=== PATIENT | female | born 1955 | race Caucasian/White ===

== ENCOUNTER 2025-04-06 11:39 | Outpatient (CLI) | payer MEDICARE, SELFPAY ==
--- NOTE | ~2025-04-06 | US_ITS ---
EXAMINATION: US venous doppler [facility] DATE: 04/06/2025 12:16 INDICATION: Left lower limb pain and swelling TECHNIQUE: Grayscale ultrasound images without and with compression and Doppler ultrasound images of the left lower extremity veins were obtained. COMPARISON: None. FINDINGS: The visualized portions of left common femoral vein, profunda (deep) femoral vein, femoral vein, popliteal vein, peroneal veins, posterior tibial veins, gastrocnemius vein and greater saphenous vein outflow are patent. IMPRESSION: 1. No deep venous thrombosis in the left lower limb. Reviewed, dictated and finalized at location [facility] [employer]
--- OUTSIDE RECORDS SUMMARY | 2025-04-06 12:42 | XMS_ITS | Encounter Summary ---
Author Organization [facility] Address [address] [address] Care Team Providers Care Remote Sensing Surveyor Name Role Phone Karl Riley MD Primary Care Provider [phone] Encounter Details Date Type Department Care Team (Late st Contact Info) Description 10/22/2019 Lab Requisition [facility] LAB MICROBIOLOGY [address] [place] [address] Hermann Robert MD Cough Social History Tobacco Use Types Packs/Day Years Used Date Smoking Tobacco: Never Assessed Comments Unknown Sex and Gender Information Value Date Recorded Sex Assigned at Not on file Legal Sex Female 9:38 AM DIRECTOR MISSION Gender Identity Not on file Sexual Orientation Not on file documented as of this encounter Plan of Treatment Not on file documented as of this encounter Procedures Procedure Name Priority Date/Time Associated Diagnosis Comments SARS-COV-2 (COVID-19) IN HOUSE Routine 10/22/2019 9:00 AM CDT Cough documented in this encounter Results * SARS-COV-2 (COVID-19) IN HOUSE (10/22/2019 9:00 AM CDT) COVID-19 PCR Not detected Not detected, Invalid 10/23/2019 4:00 PM CDT [facility] MICROBIOLOGY Microbiology SPECIMEN FROM NASOPHARYNGEAL STRUCTURE / Unknown Collection / Unknown 10/22/2019 9:00 AM CDT 10/22/2019 8:30 PM CDT Narrative [facility] MICROBIOLOGY - 10/23/2019 4:00 PM CDT This Real Time RT-PCR assay was developed and its performance characteristics determined by [facility]. This test has been authorized by the Food and Drug administration (FDA)under an Emergency Use Authorization (EUA). This test has been validated in accordance with the FDA's guidance document Policy for Diagnostic Testing in Laboratories Certified to perform High Complexity Testing under CLIA prior to Emergency Use Authorization for Coronavirus Disease-2019 during the Public Health Emergency issued on July 23, 2019. FDA independent review of this validation is pending. This test is only authorized for the duration of time the declaration that circumstances exist justifying the authorization of emergency use of in vitro diagnostic tests for detection of SARS-CoV-2 virus and/or diagnosis of COVID-19 infection under section 564(b)(1) of the Act, 21 U.S.C 360bbb-3 (b)(1), unless the authorization is terminated or revoked sooner. us Hermann Robert MD LAB - MICROBIOLOGY ORDERABL ES Final Result [facility] MICROBIOLOGY [address] [place], [address] [phone] documented in this encounter Visit Diagnoses Diagnosis Cough documented in this encounter Additional Health Concerns Infection Onset Date Last Indicated Resolved Time COVID-19 Under Investigation 10/22/2019 10/22/2019 10/23/2019 4:00 PM CDT documented as of this encounter Care Teams Remote Sensing Surveyor Relationship Specialty Start Date End Date Karl Riley MD [address] [place] [address] PCP - General Family Medicine 02/03/24 documented as of this encounter
--- OUTSIDE RECORDS SUMMARY | 2025-04-06 12:43 | XMS_ITS | Clinical Summary ---
Author Organization [facility] Address [address] [place] [address] Care Team Providers Care Crop Adjuster Name Role Phone Karl Riley MD Primary Care Provider [phone] Allergies Active Allergy Reactions Criticality Noted Date Comments Sulfa (Sulfonamide Antibiotics) Hives,Rash Medium 01/23 Medications amLODIPine (NORVASC) 5 mg tablet Take 5 mg by mouth daily Active rosuvastatin (CRESTOR) 10 mg tablet Take 10 mg by mouth daily Active cholecalciferol (VITAMIN D-3) 15668 unit tablet Take 50,000 Units by mouth once a week Active pantoprazole DR (PROTONIX) 40 mg EC tablet Take 40 mg by mouth daily Active levothyroxine (SYNTHROID) 88 mcg tablet Take 88 mcg by mouth daily 03/02/2022 Active glucosamine/cho ndr jarquin A sod (OSTEO BI-FLEX ORAL) Take by mouth Active multivitamin capsule Take 1 capsule by mouth daily Active psyllium, aspartame, SF (METAMUCIL SF) 3.4 gram packet Take 1 packet by mouth daily Active Lactobac no.41/Bifidobac t no.7 (PROBIOTIC-10 ORAL) Take by mouth Active meloxicam (MOBIC) 15 mg tabletIndicatio ns:Chronic pain of right knee Take 1 tablet (15 mg total) by mouth daily 30 tablet 2 04/30/2022 Active meloxicam (MOBIC) 15 mg tabletIndicatio ns:Chronic pain of right knee Take 1 tablet (15 mg total) by mouth daily 30 tablet 2 04/30/2022 Active Active Problems Problem Noted Date Diagnosed Date Family history of colon cancer in father 021 Overview (04/23/2021): Added automatically from request for surgery [id number] Personal history of colonic polyps 04/23/2021 Overview (04/23/2021): Added automatically from request for surgery [id number] Encounter for screening colonoscopy 04/23/2021 Overview (04/23/2021): Added automatically from request for surgery [id number] Surgical History Surgery Date Site/Laterality Comments COLONOSCOPY 10/25/2019 1 yr Medical History Medical History Date Comments Colon polyp Chronic constipation Hypertension Hyperlipidemia Hypothyroidism Acid reflux Gout Family History Medical History Relation Name Comments Colon cancer Father Colon cancer Sister Relation Name Status Comments Father Sister Social History Tobacco Use Types Packs/Day Years Used Date Smoking Tobacco: Never Tobacco Cessation:Counseling Given: Not Answered Personal Safety Answer Date Recorded Getting School Help Needed Not on file 05/29 Comments Unknown Sex and Gender Information Value Date Recorded Sex Assigned at Not on file Legal Sex Female 10:29 AM TRANSFER STATION ATTENDANT Gender Identity Not on file Sexual Orientation Not on file Last Filed Vital Signs Vital Sign Reading Time Taken Comments Blood Pressure 123/70 07/04/2021 9:02 AM TRANSFER STATION ATTENDANT Pulse 62 07/04/2021 9:02 AM TRANSFER STATION ATTENDANT Temperature 36.5 C (97.7 F) 07/04/2021 9:02 AM TRANSFER STATION ATTENDANT Respiratory Rate 16 07/04/2021 9:02 AM TRANSFER STATION ATTENDANT Oxygen Saturation 99% 07/04/2021 9:02 AM TRANSFER STATION ATTENDANT Inhaled Oxygen Concentration - - Weight 81.6 kg (180 lb) 04/29/2022 10:14 AM TRANSFER STATION ATTENDANT Height 162.6 cm (5' 4) 04/29/2022 10:14 AM TRANSFER STATION ATTENDANT Body Mass Index 30.9 04/29/2022 10:14 AM TRANSFER STATION ATTENDANT Plan of Treatment Health Maintenance Due Date Last Done Comments Depression Screening 1955 Hepatitis C Screening 1955 DTaP/Tdap/Td Vaccine (1 - Tdap) 1965 Hepatitis B Screening 1972 Breast Cancer Screening-Mammogram 04/26/2015 014, 04/20/2013 Well Visit 65+ 2019 Fall Risk Assessment 07/04/2022 07/04/2021 Pneumococcal vaccine 65+ (3 of 3 - PCV20 or PCV21) 03/02/2023 03/02/2018, 08/10/2015 Osteoporosis Screening-Bone Density Scan 08/09/2023 08/08/2021 Covid-19 Vaccine (2024- 6 season) 2025 03/16/2022, 09/22/2021, 03/08/2021, Additional history exists Influenza Vaccine (#1) 2025 , 03/25/2021, 02/16/2020, Additional history exists Colon Cancer Screening-Colonoscopy 07/04/20312021 Zoster Vaccine Completed 04/22/2019, 01/24, 07/25/2016 Procedures Procedure Name Priority Date/Time Associated Diagnosis Comments COLONOSCOPY 07/04/2021 7:20 AM TRANSFER STATION ATTENDANT DIGITAL MAMMOGRAPHY Routine 04/26/2014 1 2:59 PM TRANSFER STATION ATTENDANT from Last 3 Months or Most Recently Relevant to Health Maintenance Results * COLONOSCOPY (07/04/2021 7:20 AM TRANSFER STATION ATTENDANT) Anatomical Region Laterality Modality Other Narrative Procedure Note Eugenio Medina MD - 07/04/2021 7:20 AM CST [facility] Patient Name: Mari Holley Procedure Date: 07/04/2021 7:20 AM Date of : 1955 Admit Type: Outpatient Age: 66 Gender: Female Attending MD: Eugenio Medina M.D. Room: [facility] ENDOSCOPY ROOM 2 Note Status: Finalized Patient Profile: Refer to note in patient chart for documentation of history and physical. Procedure: Colonoscopy Indications: High risk colon cancer surveillance: Personalhistory of colonic polyps, Family history of colon cancerin multiple first-degree relatives, Last colonoscopy 1 year ago Referring MD: Karl Riley M.D. Providers: Eugenio Medina M.D. Impression: - Hemorrhoids found on perianal exam. - Diverticulosis in the sigmoid colon. - The examination was otherwise normal. - No specimens collected. Recommendation: - Discharge patient to home. - Resume previous diet. - Continue present medications. - Repeat colonoscopy in 5 years for surveillance. - Return to primary care physician as previously scheduled. Medicines: Propofol per Anesthesia Complications: No immediate complications. Estimated Blood Loss: Estimated blood loss: none. Procedure: Pre-Anesthesia Assessment: - This assessment was completed [Time ofAssessment] prior to the administration of sedation. The benefits, risks and alternatives of theprocedure and sedation were discussed and informed consentwas obtained. All questions were answered. Please referto the signed informed consent document in the medical record. The bowel preparation used was Miralax via single dose instruction. The bowel preparation used was bisacodyl tablets via single dose instruction.The scope was passed under direct vision. TheColonoscope [id number] was introduced through the anus and advanced to the the cecum, identified by appendiceal orifice and ileocecal valve. The colonoscopy was performed without difficulty. The patient tolerated the procedure well. The qualityof the bowel preparation was excellent. Findings: Hemorrhoids were found on perianal exam. A few small-mouthed diverticula were found in the sigmoid colon. The exam was otherwise without abnormality. Electronically signed by Eugenio Medina M.D. Eugenio Medina M.D. 07/04/2021 8:33:37 AM Number of Addenda: 0 Note Initiated On: 07/04/2021 7:20 AM Procedure Code(s): --- Professional --- G0105, Colorectal cancer screening; colonoscopy on individual at high risk Diagnosis Code(s): --- Professional --- K57.30, Diverticulosis of large intestine without perforation orabscess without bleeding Z80.0, Family history of malignant neoplasm of digestive organs K64.9, Unspecified hemorrhoids Z86.010, Personal history of colonic polyps CPT copyright 2019 [employer]. All rights reserved. The codes documented in this report are preliminary and upon cytogenetics laboratory manager reviewmay be revised to meet current compliance requirements. Recognized by the [employer] for promoting quality in endoscopy us Eugenio Medina MD ENDOSCOPY PROCEDURES Final Re sult * DIGITAL MAMMOGRAPHY (04/26/2014 12:59 PM TRANSFER STATION ATTENDANT) Anatomical Region Laterality Modality Breast Mammography 04/26/2014 12:5 9 PM TRANSFER STATION ATTENDANT Narrative 04/27/2014 9:12 AM TRANSFER STATION ATTENDANT Vm Mammogram Performed by: Screening Mamm Bi Acc#: [id number] DATE OF EXAM: Apr 26 2014 CLINICAL HISTORY: Routine screening, no current complaints. RESULT: Four view screening mammogram is compared to a prior exam dated 04/20/13. There has been no interval change. The breasts are composed of scattered fibroglandular densities. Several small partially obscured nodular densities are scattered throughout both breasts. These are unchanged compared to the prior study. There are no new masses or suspicious microcalcifications. Digital technology was employed plus computer-aided detection software (R2) was utilized in interpretation of these images. This facility utilizes a reminder system to notify patients of yearly mammograms. IMPRESSION: BI RADS CATEGORY 2 BENIGN FINDING. RECOMMEND ROUTINE FOLLOW UP. Interpreting Physician: DR BRENDA NAIR M.D. Read on: Apr 26 2014 12:59P Transcribed by: von On: Apr 26 2014 5:00P Approved Electronically by: JOANIE Jennings, DR GUTIERREZ on: Apr 27 2014 9:12A Ordering DR: DR WATSON GRIFFIN Attending DR: DR WATSON GRIFFIN Procedure Note Provider, Raul, - 09/23/2016 Vm Mammogram Performed by: Screening Mamm Bi Acc#: [id number] DATE OF EXAM: Apr 26 2014 CLINICAL HISTORY: Routine screening, no current complaints. RESULT: Four view screening mammogram is compared to a prior exam dated 04/20/13.There has been no interval change. The breasts are composed of scatteredfibroglandular densities. Several small partially obscured nodulardensities are scattered throughout both breasts. These are unchangedcompared to the prior study. There are no new masses or suspiciousmicrocalcifications. Digital technology was employed plus computer-aideddetection software ([employer]) was utilized in interpretation of these images.This facility utilizes a reminder system to notify patients of yearlymammograms. IMPRESSION: BI RADS CATEGORY 2 BENIGN FINDING. RECOMMEND ROUTINE FOLLOW UP. Interpreting Physician: DR BRENDA NAIR M.D. Read on: Apr 26 201412:59P Transcribed by: von On: Apr 26 2014 5:00P Approved Electronically by: JOANIE Jennings, DR GUTIERREZ on: Apr 27 20149:12A Ordering DR: DR WATSON GRIFFIN Attending DR: DR WATSON GRIFFIN Historical Provider MD NUNEZ MAMMO PROCEDURES Nancy l Result from Last 3 Months or Most Recently Relevant to Health Maintenance Insurance [facility] MEDICARE ADVANTAGE [facility] MEDICARE ADVANTAGE Advance Directives For more information, please contact: [phone] * Full Code (Latest Code Status on File) Date Activated Date Inactivated Comments 07/04/2021 7:40 AM 07/04/2021 1:35 PM * Full Code Date Activated Date Inactivated Comments 07/04/2021 7:40 AM 07/04/2021 7:40 AM Care Teams Crop Adjuster Relationship Specialty Start Date End Date Karl Riley MD [address] [place] [address] PCP - General Family Medicine 04/23/21
--- OUTSIDE RECORDS SUMMARY | 2025-04-06 12:43 | XMS_ITS | Clinical Summary ---
Author Organization [facility] Address [address] [place] [address] Phone Care Team Providers Care Gel Coat Sprayer Name Role Phone Karl Riley Primary Care Provider [phone] Murray Monreal MD Unavailable Allergies Active Allergy Reactions Criticality Noted Date Comments Sulfa Antibiotics Rash 02/04/2016 Medications levothyroxine (SYNTHROID) 50 MCG Tablet Take 50 mcg by mouth every morning. Active amLODIPine (NORVASC) 5 MG Tablet Take 5 mg by mouth every morning. Active ergocalciferol (VITAMIN D) 09387 UNIT Capsule once a week. Thursday nights 0 Active omeprazole (PRILOSEC) 20 MG CAPSULE DELAYED RELEASE nightly. 0 Active rosuvastatin (CRESTOR) 10 MG Tablet every morning. Activ e pantoprazole (PROTONIX) 40 MG Tablet Delayed Response Take 40 mg by mouth daily. Active OXYGEN CONCENTRATOR 5 L by Does not apply route. nightly Active VITAMIN D PO Take by mouth. Ac tive cyanocobalamin (VITAMIN B12) 2500 MCG SL Tablet Take 1 Tablet by mouth daily. Active melatonin 5 MG TABLET DISPERSIBLE Take by mouth. Act ana paula Active Problems Problem Noted Date Diagnosed Date Chronic respiratory failure with hypoxia Personal history of tobacco use 09/03/2020 Personal history of COVID-19 09/03/2020 BIJAL (obstructive sleep apnea) 06/05/2020 Gastroesophageal reflux disease without esophagi tis 06/05/2020 Essential (primary) hypertension 06/05/2020 Encounters Date Type Department Care Team Description 02/06/2025 Telephone [facility] Medical [facility] - Pulmonology & Sleep Medicine [facility] [address] [place] [address] Murray Monreal MD from Last 3 Months Family History Medical History Relation Name Comments Colon Cancer Father Diabetes Father High Cholesterol Father Hypertension Father Diabetes Mother High Cholesterol Mother Hypertension Mother Breast Cancer Other Maternal cousin Breast Cancer Sister Colon Cancer Sister colon Lung Cancer Sister Relation Name Status Comments Father Mother Other Maternal cousin Alive Sister Social History Tobacco Use Types Packs/Day Years Used Date Smoking Tobacco: Former Cigarettes 1 47.7 0 02/03/1969 - 10/24/2016 Smokeless Tobacco: Never Tobacco Cessation:Counseling Given: Not Answered Alcohol Use Standard Drinks/Week Comments No 0 (1 standard drink = 0.6 oz pur e alcohol) Sexually Active Control Partners Comments Not Currently Comments No Sex and Gender Information Value Date Recorded Sex Assigned at Not on file Legal Sex Female 4:44 PM EXTERMINATOR Gender Identity Not on file Sexual Orientation Not on file Last Filed Vital Signs Vital Sign Reading Time Taken Comments Blood Pressure 124/68 01/02/2025 11:25 AM CDT Pulse 60 01/02/2025 11:25 AM CDT Temperature 36.7 C (98 F) 01/02/2025 11:25 AM CDT Respiratory Rate 14 01/02/2025 11:2 5 AM CDT Oxygen Saturation 95% 01/02/2025 11: 25 AM CDT Inhaled Oxygen Concentration - - Weight 82.4 kg (181 lb 11.2 oz) 025 11:25 AM CDT Height 160 cm (5' 3) 01/02/2025 11:25 AM CDT Body Mass Index 32.19 01/02/2025 11:25 AM CDT Plan of Treatment Upcoming Encounters Date Type Department Care Team (Late st Contact Info) Description 01/02/2026 10:00 AM CDT [facility] [address] [facility] [place] [phone] Murray Monreal MD [address] [place] [address] Health Maintenance Due Date Last Done Comments TdaP Immunization 1955 Cologuard 1999 Immunochemical Fecal Occult Blood 1999 Respiratory Syncytial Virus (RSV) Immunization (Adult) (1 - Risk 50-74 years 1-dose series) 2004 Pneumococcal Immunization (50+ years) (2 of 2 - PCV) 03/02/2019 03/02/2018, 08/10/2015 Medicare Initial AWV G0438 05/25/2020 Lung Cancer Screening 07/25/2020 07/26/2019, 020 DEXA Bone Density 08/09/2023 08/08/2021, 12/07/2017 Mammogram 01/06/2025 01/07/2024, 11/22, 10/15/2022, Additional history exists Influenza Immunization (#1) 01/23/202502/23, 03/08/2023, 03/02/2022, Additional history exists SARS-COV-2 Immunization ( season) 2025 04/05/2023, 03/16/2022, 09/22/2021, Additional history exists Colonoscopy 07/04/2031 07/04/2021, 06/06/2019, 10/27/2017, Additional history exists Colorectal Cancer Screening 07/04/2031 Hepatitis C Virus (HCV) Screening Completed 02/24/2017 Pneumococcal Immunization Combined Discontinued 03/02/2018, 08/10/2015 Zoster Immunization Completed 04/22/2019, 02/16/2019, 07/25/2016 Hepatitis B Immunization Aged Out No longer eligible based on patient's age to complete this topic Human Papillomavirus (HPV) Immunization Aged Out No longer eligible based on patient's age to complete this topic Meningococcal Immunization (ACWY) Aged Out No longer eligible based on patient's age to complete this topic Rotavirus Immunization Aged Out No lo nger eligible based on patient's age to complete this topic Procedures Procedure Name Priority Date/Time Associated Diagnosis Comments PULMONARY TEST 01/18/2025 12:00 AM CDT PULSE OXIMETRY, OVERNIGHT Routine 01/18/2025 12:00 AM CDT Chronic respiratory failure with hypoxia (HCC) COLONOSCOPY Routine 10/27/2017 [facility] SCREENING BILATERAL DIGITAL W CAD Routine 04/16/2016 4:14 PM EXTERMINATOR Encounter for screening mammogram for malignant neoplasm of breast from Last 3 Months or Most Recently Relevant to Health Maintenance Results * PULMONARY TEST (01/18/2025 12:00 AM CDT) 01/18/2025 us Provider Scan PFT ORDERABLES Final Result Performing Organization Address City/[facility]/ZIP Co de Phone Number SCAN * PULSE OXIMETRY, OVERNIGHT (01/18/2025 12:00 AM CDT) 01/18/2025 us Murray Monreal MD RESPIRATORY CARE ORDERABLES Nancy l Result Performing Organization Address City/[facility]/ZIP Co de Phone Number SCAN * HM COLONOSCOPY (10/27/2017) us Not On File Provider PROCEDURE/MINOR SURGICAL OR DERABLES Final Result * [facility] SCREENING BILATERAL DIGITAL W CAD (04/16/2016 4:14 PM EXTERMINATOR) Anatomical Region Laterality Modality breast Bilateral Mammography 04/16/2016 3:52 PM EXTERMINATOR Narrative 04/23/2016 7:25 AM EXTERMINATOR - TERRY SCREENING BILATERAL DIGITAL W CAD BILATERAL DIGITAL SCREENING MAMMOGRAM WITH CAD WITH MEDIOLATERAL OBLIQUE CRANIOCAUDAL: 04/16/2016 The study was acquired using digital technology and interpreted from soft copy. Current study was also evaluated with ICAD version 7.2. CLINICAL: Routine screening. Patient has no complaints. No personal history of cancer. Sister with history of breast cancer. Maternal cousin had breast cancer. COMPARISONS: Comparison is made to exams dated: 04/26/2014, 04/20/2013, and 03/03/2012 [facility]. BREAST TISSUE:There are scattered fibroglandular densities in both breasts. FINDINGS: No significant masses, calcifications, or other findings are seen in either breast. There has been no significant interval change. IMPRESSION: BI-RAD 1 NEGATIVE There is no mammographic evidence of malignancy. A 1 year screening mammogram is recommended. The patient has been or will be contacted. The patient will be entered into a reminder system with a target due date of 1 year for her next screening exam. Electronically signed by: Emil colon/penrad:04/22/2016 14:57:58 White Mixing Operator: Lydia Melara (R), [facility]: Normal Exam Reading location: MON BI-RADS: 1 Negative Procedure Note Emil Thomas MD - 04/23/2016 - TERRY SCREENING BILATERAL DIGITAL W CAD BILATERAL DIGITAL SCREENING MAMMOGRAM WITH CAD WITH MEDIOLATERAL OBLIQUE CRANIOCAUDAL: 04/16/2016 The study was acquired using digital technology and interpreted from soft copy. Current study was also evaluated with ICAD version 7.2. CLINICAL: Routine screening. Patient has no complaints. No personal history of cancer. Sister with history of breast cancer. Maternal cousin had breast cancer. COMPARISONS: Comparison is made to exams dated: 04/26/2014, 04/20/2013, and 03/03/2012 [facility]. BREAST TISSUE:There are scattered fibroglandular densities in both breasts. FINDINGS: No significant masses, calcifications, or other findings are seen in either breast. There has been no significant interval change. IMPRESSION: BI-RAD 1 NEGATIVE There is no mammographic evidence of malignancy. A 1 year screening mammogram is recommended. The patient has been or will be contacted. The patient will be entered into a reminder system with a target due date of 1 year for her next screening exam. Electronically signed by: Emil colon/penrad:04/22/2016 14:57:58 White Mixing Operator: Lydia Melara (R), [facility] letter sent: Normal Exam Reading location: MON BI-RADS: 1 Negative us Chapito Moses MD IMG MAMMO ORDERABLES F inal Result from Last 3 Months or Most Recently Relevant to Health Maintenance Insurance MEDICARE [facility] Care Teams Gel Coat Sprayer Relationship Specialty Start Date End Date Karl Riley [address] [facility] [place] [address] PCP - General Family Medicine 06/06/19 Murray Monreal MD [address] [place] [address] Consulting Physician Pulmonary Disease 04/23/22"
--- OUTSIDE RECORDS SUMMARY | 2025-04-06 12:43 | XMS_ITS | Data Portability ---
Author Organization [place] - [facility], Main Office Address [address] [place] [address] Assessment No assessment recorded. Plan of Treatment Reminders Order Date Submit Date Provider Last Modified By Organization Details Last Modified Time Details Appointments None recorded. Lab None recorded. Referral None recorded. Procedures None recorded. Surgeries None recorded. Imaging None recorded. Medication Orders levothyroxi ne 88 mcg tablet 2022 023 [facility], [address] [place] [address], [address], 12:31:54 Patient TargetsNo targets recorded. Patient InstructionsNo instructions recorded. Reason for Referral None Reported. Results Created Date Observation Date Name Description Value Unit Range Abnormal Flag Note LastModifiedBy Organization Detail LastModifiedTime 04/23/20 22 04/24/2022 TSH+F REE T4 TSH 3.82 mIU/L 0.40-4 .50 normal Not Available Hang [facility]/ [facility] [address] [place], [address], 04/24/2022 10:29:14 04/23/20 22 04/24/2022 TSH+F REE T4 T4, free 1.2 NG/dL 0.8-1. 8 normal Not Available [facility]/ [facility] [address] [place], [address], 04/24/2022 10:29:14 04/23/20 22 04/24/2022 T3, FREE T3, free 3.1 pg/mL 2.3-4. 2 normal Not Available Hang [facility]/ [facility] [address] [place], [address], 04/24/2022 10:29:14 04/23/20 22 04/24/2022 COMPR EHENS YULY METAB OLIC PANEL glucose 92 mg/dL 65-99 normal Fasti ng refer ence inter nataly Not Available [address] [place], [address], 04/24/2022 10:29:13 04/23/20 22 04/24/2022 COMPR EHENS YULY METAB OLIC PANEL urea nitrogen (BUN) 15 mg/dL 7-25 normal Not Available [address], [address], 04/24/2022 10:29:13 04/23/20 22 04/24/2022 COMPR EHENS YULY METAB OLIC PANEL creatinine 0.77 mg/dL 0.50-1 .05 normal Not Available [address], [address], 04/24/2022 10:29:13 04/23/20 22 04/24/2022 COMPR EHENS YULY METAB OLIC PANEL eGFR 84 mL/mi n/1.7 3m2 > or = 60 normal The eGFR is based on the CKD-E PI 2020 equat ion. To calcu late the new eGFR from a previ ous Creat inine or Cysta tin C resul t, go to https :[email or web address]/ kdoqi /gfr% 5Fcal culat or Not Available [address] [address] [place], [address], 04/24/2022 10:29:13 04/23/20 22 04/24/2022 COMPR EHENS YULY METAB OLIC PANEL BUN/creatini ne ratio not applic able (calc ) 6-22 Not Available [address], [address], 04/24/2022 10:29:13 04/23/20 22 04/24/2022 COMPR EHENS YULY METAB OLIC PANEL sodium 141 mmol/ L 135-14 6 normal Not Available [address], [address], 04/24/2022 10:29:13 04/23/20 22 04/24/2022 COMPR EHENS YULY METAB OLIC PANEL potassium 4.3 mmol/ L 3.5-5. 3 normal Not Available [address], [address], 04/24/2022 10:29:13 04/23/20 22 04/24/2022 COMPR EHENS YULY METAB OLIC PANEL chloride 104 mmol/ L 98-110 normal Not Available [address], [address], 04/24/2022 10:29:13 04/23/20 22 04/24/2022 COMPR EHENS YULY METAB OLIC PANEL carbon dioxide 29 mmol/ L 20-32 normal Not Available [address], [address], 04/24/2022 10:29:13 04/23/20 22 04/24/2022 COMPR EHENS YULY METAB OLIC PANEL calcium 9.8 mg/dL 8.6-10 .4 normal Not Available [address], [address], 04/24/2022 10:29:13 04/23/20 22 04/24/2022 COMPR EHENS YULY METAB OLIC PANEL protein, total 7.0 g/dL 6.1-8. 1 normal Not Available [address], [address], 04/24/2022 10:29:13 04/23/20 22 04/24/2022 COMPR EHENS YULY METAB OLIC PANEL albumin 4.5 g/dL 3.6-5. 1 normal Not Available [address], [address], 04/24/2022 10:29:13 04/23/20 22 04/24/2022 COMPR EHENS YULY METAB OLIC PANEL globulin 2.5 g/dL_ (calc ) 1.9-3. 7 normal Not Available [address], [address], 04/24/2022 10:29:13 04/23/20 22 04/24/2022 COMPR EHENS YULY METAB OLIC PANEL albumin/glob ulin ratio 1.8 (calc ) 1.0-2. 5 normal Not Available [address], [address], 04/24/2022 10:29:13 04/23/20 22 04/24/2022 COMPR EHENS YULY METAB OLIC PANEL bilirubin, total 0.4 mg/dL 0.2-1. 2 normal Not Available [address], [address], 04/24/2022 10:29:13 04/23/20 22 04/24/2022 COMPR EHENS YULY METAB OLIC PANEL alkaline phosphatase 71 U/L 37-153 normal Not Available [address], [address], 04/24/2022 10:29:13 04/23/20 22 04/24/2022 COMPR EHENS YULY METAB OLIC PANEL AST 20 U/L 10-35 normal Not Available [address], [address], 04/24/2022 10:29:13 04/23/20 22 04/24/2022 COMPR EHENS YULY METAB OLIC PANEL ALT 28 U/L 6-29 normal Not Available [address], [address], 04/24/2022 10:29:13 10/09/19 23 10/14/2022 COMPR EHENS YULY METAB OLIC PANEL glucose 96 mg/dL 65-99 normal Fasti ng refer ence inter nataly Not Available [facility] [address] [address] [place], [address], 10/14/2022 12:34:30 10/09/19 23 10/14/2022 COMPR EHENS YULY METAB OLIC PANEL urea nitrogen (BUN) 14 mg/dL 7-25 normal Not Available [address] [address] [place], [address], 10/14/2022 12:34:30 10/09/1910/14/2022 COMPR EHENS YULY METAB OLIC PANEL creatinine 0.80 mg/dL 0.50-1 .05 normal Not Available [address] [address] [place], [address], 10/14/2022 12:34:30 10/09/1910/14/2022 COMPR EHENS YULY METAB OLIC PANEL eGFR 80 mL/mi n/1.7 3m2 > or = 60 normal The eGFR is based on the CKD-E PI 2020 equat ion. To calcu late the new eGFR from a previ ous Creat inine or Cysta thi C resul t, go to https :[email or web address] [email or web address] s/ kdoqi /gfr% 5Fcal culat or Not Available [address] [address] [place], [address], 10/14/2022 12:34:30 10/09/19 23 10/14/2022 COMPR EHENS YULY METAB OLIC PANEL BUN/creatini ne ratio NOT APPLIC ABLE (calc ) 6-22 Not Available [address] [address] [place], [address], 10/14/2022 12:34:30 10/09/1910/14/2022 COMPR EHENS YULY METAB OLIC PANEL sodium 142 mmol/ L 135-14 6 normal Not Available [address] [address] [place], [address], 10/14/2022 12:34:30 10/09/19 23 10/14/2022 COMPR EHENS YULY METAB OLIC PANEL potassium 4.6 mmol/ L 3.5-5. 3 normal Not Available [address], [address], 10/14/2022 12:34:30 10/09/1910/14/2022 COMPR EHENS YULY METAB OLIC PANEL chloride 105 mmol/ L 98-110 normal Not Available [address], [address], 10/14/2022 12:34:30 10/09/1910/14/2022 COMPR EHENS YULY METAB OLIC PANEL carbon dioxide 28 mmol/ L 20-32 normal Not Available [address], [address], 10/14/2022 12:34:30 10/09/19 23 10/14/2022 COMPR EHENS YULY METAB OLIC PANEL calcium 9.7 mg/dL 8.6-10 .4 normal Not Available [address], [address], 10/14/2022 12:34:30 10/09/19 23 10/14/2022 COMPR EHENS YULY METAB OLIC PANEL protein, total 7.1 g/dL 6.1-8. 1 normal Not Available [address], [address], 10/14/2022 12:34:30 10/09/1910/14/2022 COMPR EHENS YULY METAB OLIC PANEL albumin 4.5 g/dL 3.6-5. 1 normal Not Available [address], [address], 10/14/2022 12:34:30 10/09/19 23 10/14/2022 COMPR EHENS YULY METAB OLIC PANEL globulin 2.6 g/dL_ (calc ) 1.9-3. 7 normal Not Available [address] [address] [place], [address], 10/14/2022 12:34:30 10/09/19 23 10/14/2022 COMPR EHENS YULY METAB OLIC PANEL albumin/glob ulin ratio 1.7 (calc ) 1.0-2. 5 normal Not Available [address], [address], 10/14/2022 12:34:30 10/09/19 23 10/14/2022 COMPR EHENS YULY METAB OLIC PANEL bilirubin, total 0.4 mg/dL 0.2-1. 2 normal Not Available [address], [address], 10/14/2022 12:34:30 10/09/19 23 10/14/2022 COMPR EHENS YULY METAB OLIC PANEL alkaline phosphatase 79 U/L 37-153 normal Not Available [address], [address], 10/14/2022 12:34:30 10/09/19 23 10/14/2022 COMPR EHENS YULY METAB OLIC PANEL AST 20 U/L 10-35 normal Not Available [address], [address], 10/14/2022 12:34:30 10/09/19 23 10/14/2022 COMPR EHENS YULY METAB OLIC PANEL ALT 25 U/L 6-29 normal Not Available [address], [address], 10/14/2022 12:34:30 10/09/19 23 10/14/2022 IODIN E, SERUM /PLAS MA iodine, serum/plasma 72 mcg/L 52-109 This test was devel oped and its anthony tical perfo rmanc e augustina cteri stics have been deter mined by [facility] [place]. It has not been clear ed or appro bobbi by the U.S. Food and Drug Admin istra tion. This assay has been valid ated pursu ant to the CLIA regul ation s and is used for clini jayleen purpo ses. Not Available [facility]/ [address] [address] [place], [address], 10/14/2022 12:34:30 10/09/1910/14/2022 THYRO ID PEROX IDASE ANTIB ODIES thyroid peroxidase antibodies 154 IU/mL <9 high Not Available [facility]/ [address] [address] [place], [address], 10/14/2022 12:34:31 10/09/1910/14/2022 VITAM IN B12/F OLATE , SERUM PANEL vitamin B12 437 pg/mL 200-11 00 normal Not Available [facility]/ [address] [address] [place], [address], 10/14/2022 12:34:32 10/09/1910/14/2022 VITAM IN B12/F OLATE , SERUM PANEL folate, serum 10.5 NG/mL normal Refer ence Range Low: <3.4 Borde rline : 3.4-5 .4 Hoda l: >5.4 Not Available [facility]/ [address] [address] [place], [address], 10/14/2022 12:34:32 10/09/1910/14/2022 T3, FREE T3, free 3.0 pg/mL 2.3-4. 2 normal Not Available [facility]/ [address] [address] [place], [address], 10/14/2022 12:34:32 10/09/1910/14/2022 VITAM IN D,25- OH,TO DOMITILA,I A vitamin D,25-oh,tota l,ia 37 NG/mL 30-100 normal Vitam in D Statu s 25-OH Vitam in D: Defic iency : <20 ng/mL Insuf ficie ncy: 20 - 29 ng/mL Optim al: > or = 30 ng/mL For 25-OH Vitam in D testi ng on patie nts on D2-jarquin pplem entat ion and patie nts for whom quant itati on of D2 and D3 fract ions is requi red, the [facility](TM ) 25-OH VIT D, (D2,D 3), LC/MS /MS is recom keila d: order code 14962 (billie ents >2yrs ). See Note 1 Note 1 For addit ional infor vesna marvin e refer to http: //[facility] [employer] gn[employer].c om/fa q/FAQ 199 (This link is being provi ded for infor mino carr/ litzy robbins purpo ses only. ) Not Available [facility] [address], [address], 10/14/2022 12:34:33 10/09/19 23 10/14/2022 TSH+F REE T4 TSH 3.21 mIU/L 0.40-4 .50 normal Not Available [facility] [address], [address], 10/14/2022 12:34:33 10/09/19 23 10/14/2022 TSH+F REE T4 T4, free 1.1 NG/dL 0.8-1. 8 normal Not Available [facility] [address], [address], 10/14/2022 12:34:33 01/07/20 23 01/08/2023 COMPR EHENS YULY METAB OLIC PANEL glucose 107 mg/dL 65-99 high Fasti ng refer ence inter nataly For someo ne witho ut known diabe kate, a gluco se value betwe en 100 and 125 mg/dL is consi stent with predi abete s and shoul d be confi rmed with a follo w-up test. Not Available Hang [facility]/ [address], [address], 01/08/2023 22:07:40 01/07/20 23 01/08/2023 COMPR EHENS YULY METAB OLIC PANEL urea nitrogen (BUN) 14 mg/dL 7-25 normal Not Available [address], [address], 01/08/2023 22:07:40 01/07/20 23 01/08/2023 COMPR EHENS YULY METAB OLIC PANEL creatinine 0.84 mg/dL 0.50-1 .05 normal Not Available [address], [address], 01/08/2023 22:07:40 01/07/20 23 01/08/2023 COMPR EHENS YULY METAB OLIC PANEL eGFR 76 mL/mi n/1.7 3m2 > or = 60 normal Not Available [address], [address], 01/08/2023 22:07:40 01/07/20 23 01/08/2023 COMPR EHENS YULY METAB OLIC PANEL BUN/creatini ne ratio SEE NOTE: (calc ) 6-22 Not Repor beau: BUN and Creat inine are withi n refer ence range . Not Available [address], [address], 01/08/2023 22:07:40 01/07/20 23 01/08/2023 COMPR EHENS YULY METAB OLIC PANEL sodium 141 mmol/ L 135-14 6 normal Not Available [address], [address], 01/08/2023 22:07:40 01/07/20 23 01/08/2023 COMPR EHENS YULY METAB OLIC PANEL potassium 4.7 mmol/ L 3.5-5. 3 normal Not Available [facility] [address], [address], 01/08/2023 22:07:40 01/07/20 23 01/08/2023 COMPR EHENS YULY METAB OLIC PANEL chloride 105 mmol/ L 98-110 normal Not Available [address], [address], 01/08/2023 22:07:40 01/07/20 23 01/08/2023 COMPR EHENS YULY METAB OLIC PANEL carbon dioxide 29 mmol/ L 20-32 normal Not Available [address], [address], 01/08/2023 22:07:40 01/07/20 23 01/08/2023 COMPR EHENS YULY METAB OLIC PANEL calcium 9.6 mg/dL 8.6-10 .4 normal Not Available [address], [address], 01/08/2023 22:07:40 01/07/20 23 01/08/2023 COMPR EHENS YULY METAB OLIC PANEL protein, total 6.5 g/dL 6.1-8. 1 normal Not Available [address], [address], 01/08/2023 22:07:40 01/07/20 23 01/08/2023 COMPR EHENS YULY METAB OLIC PANEL albumin 4.4 g/dL 3.6-5. 1 normal Not Available [address], [address], 01/08/2023 22:07:40 01/07/20 23 01/08/2023 COMPR EHENS YULY METAB OLIC PANEL globulin 2.1 g/dL_ (calc ) 1.9-3. 7 normal Not Available [address], [address], 01/08/2023 22:07:40 01/07/20 23 01/08/2023 COMPR EHENS YULY METAB OLIC PANEL albumin/glob ulin ratio 2.1 (calc ) 1.0-2. 5 normal Not Available [address], [address], 01/08/2023 22:07:40 01/07/20 23 01/08/2023 COMPR EHENS YULY METAB OLIC PANEL bilirubin, total 0.3 mg/dL 0.2-1. 2 normal Not Available [address], [address], 01/08/2023 22:07:40 01/07/20 23 01/08/2023 COMPR EHENS YULY METAB OLIC PANEL alkaline phosphatase 69 U/L 37-153 normal Not Available [facility] [address], [address], 01/08/2023 22:07:40 01/07/20 23 01/08/2023 COMPR EHENS YULY METAB OLIC PANEL AST 18 U/L 10-35 normal Not Available [address], [address], 01/08/2023 22:07:40 01/07/20 23 01/08/2023 COMPR EHENS YULY METAB OLIC PANEL ALT 23 U/L 6-29 normal Not Available [address], [address], 01/08/2023 22:07:40 01/07/20 23 01/08/2023 IODIN E, SERUM /PLAS MA iodine, serum/plasma 69 mcg/L 52-109 This test was ang watters and its anthony tical perfo rmanc e augustina cteri stics have been deter mined by [facility]. It has not been clear ed or appro bobbi by the U.S. Food and Drug Admin istra tion. This assay has been valid ated pursu ant to the CLIA regul ation s and is used for clini jayleen purpo ses. Not Available [facility] [employer] [address] [place], [address], 01/08/2023 22:07:41 01/07/20 23 01/08/2023 THYRO ID PEROX IDASE ANTIB ODIES thyroid peroxidase antibodies 162 IU/mL <9 high Not Available [address], [address], 01/08/2023 22:07:41 01/07/20 23 01/08/2023 VITAM IN B12/F OLATE , SERUM PANEL vitamin B12 434 pg/mL 200-11 00 normal Not Available [address], [address], 01/08/2023 22:07:42 01/07/20 23 01/08/2023 VITAM IN B12/F OLATE , SERUM PANEL folate, serum 13.7 NG/mL normal Refer ence Range Low: <3.4 Borde rline : 3.4-5 .4 Hoda l: >5.4 Not Available [address], [address], 01/08/2023 22:07:42 01/07/20 23 01/08/2023 T3, FREE T3, free 3.0 pg/mL 2.3-4. 2 normal Not Available [address], [address], 01/08/2023 22:07:43 01/07/20 23 01/08/2023 VITAM IN D,25- OH,TO DOMITILA,I A vitamin D,25-oh,tota l,ia 33 NG/mL 30-100 normal Vitam in D Statu s 25-OH Vitam in D: Defic iency : <20 ng/mL Insuf ficie ncy: 20 - 29 ng/mL Optim al: > or = 30 ng/mL For 25-OH Vitam in D testi ng on patie nts on D2-jarquin pplem entat ion and patie nts for whom quant itati on of D2 and D3 fract ions is requi red, the [facility](TM ) 25-OH VIT D, (D2,D 3), LC/MS /MS is recom keila d: order code 54729 (billie ents >2yrs ). See Note 1 Note 1 For addit ional infor vesna marvin refer to http: //[facility] [employer] om/fa q/FAQ 199 (This link is being provi ded for infor mino carr/ educrolando robbins purpo ses only. ) Not Available [facility] [address] [address] [place], [address], 01/08/2023 22:07:43 01/07/20 23 01/08/2023 TSH+F REE T4 TSH 1.85 mIU/L 0.40-4 .50 normal Not Available [facility] [address] [address] [place], [address], 01/08/2023 22:07:44 01/07/20 23 01/08/2023 TSH+F REE T4 T4, free 1.1 NG/dL 0.8-1. 8 normal Not Available [facility] [address] [address] [place], [address], 01/08/2023 22:07:44 Result Notes None recorded. Problems Name Problem SNOMED Code Status Onset Date Resolution Date Notes Provider Name and Address Organization Details Recorded Time Plantar fasciitis of left foot 2522605965959 9101 Active 2017 Not Available [facility] 3 20:04:52 Hypothyroi dism 82618345 Active 2019 Not Available [facility] 3 20:04:52 Vitamin D deficiency 72600633 Active 2022 SARAH Gerber null, [employer] 3 11:28:11 Impaired fasting glycemia 340242836 Active 2022 Carina Holley MD [address] [place] [address], [place], [address] , [employer] 3 12:31:57 Problem Notes None recorded. Medical Equipment None Reported. Allergies Allergen ID Allergen Name Allergen Category Reaction Reaction Severity Criticality Documentation Date Start Date Code Code System Note Provider Name and Address Organization Details Recorded Time 53563 Substance with sulfonami de structure and antibacte rial mechanism of action (substanc e) medicatio n hives Not available Not available 07/23/2022 73494 8003 SNOMED Not Available [facility] 3 20:06:39 Medications Name Sig Start Date Stop Date Status Note LastModified by Organization Details LastModified Time amoxicillin 500 mg capsule 09/11 completed Not Available Not Available Not Available ibuprofen 800 mg tablet 01/01 completed Not Available Not Available Not Available valacyclovi r 1 gram tablet TAKE 1 TABLET BY MOUTH THREE TIMES DAILY 01/12 completed Not Available Not Available Not Available hydrocodone 5 mg-acetamin ophen 325 mg tablet 02/08 completed Not Available Not Available Not Available meloxicam 15 mg tablet TAKE 1 TABLET BY MOUTH ONCE DAILY 01/12 completed Not Available Not Available Not Available penicillin V potassium 500 mg tablet 01/01 completed Not Available Not Available Not Available levofloxaci n 250 mg tablet 01/01 completed Not Available Not Available Not Available amlodipine 5 mg tablet TAKE 1 TABLET BY MOUTH ONCE DAILY active Not Available Not Available No t Available peg-electro lyte solution 420 gram oral solution 02/08 completed Not Available Not Available Not Available amoxicillin 500 mg tablet TAKE 1 TABLET BY MOUTH EVERY 8 HOURS 11/21 completed Not Available Not Available Not Available levothyroxi ne 75 mcg tablet TAKE 1 TABLET BY MOUTH ONCE DAILY 11/21 completed Not Available Not Available Not Available levothyroxi ne 88 mcg tablet TAKE 1 TABLET BY MOUTH ONCE DAILY WITH WATER IN THE MORNING 2022 active Not Available Not Available Not Avai lable meclizine 25 mg tablet TAKE 1 TABLET BY MOUTH TWICE DAILY NEEDED 11/21 completed Not Available Not Available Not Available levothyroxi ne 50 mcg tablet 12/21 completed Not Available Not Available Not Available pantoprazol e 40 mg tablet,quinton yed release 11/21 completed Not Available Not Available Not Available simvastatin 20 mg tablet 02/08 completed Not Available Not Available Not Available promethazin e 25 mg tablet 02/08 completed Not Available Not Available Not Available omeprazole 20 mg capsule,del ayed release 11/21 completed Not Available Not Available Not Available diclofenac sodium 75 mg tablet,quinton yed release Take 1 tablet twice a day by oral route as needed for 30 days. active Not Available Not Available No t Available ergocalcife rol (vitamin D2) 1,250 mcg (50,000 unit) capsule TAKE 1 CAPSULE BY MOUTH ONCE A WEEK 01/12 completed Not Available Not Available Not Available levofloxaci n 500 mg tablet TAKE 1 TABLET BY MOUTH EVERY 24 HOURS 01/12 completed Not Available Not Available Not Available oxycodone-a cetaminophe n 7.5 mg-325 mg tablet TAKE 1 TABLET BY MOUTH EVERY 6 HOURS NEEDED FOR PAIN 11/21 completed Not Available Not Available Not Available ketoconazol e 2 % topical cream Apply to feet twice daily as needed active Not Available Not Available No t Available rosuvastati n 10 mg tablet TAKE 1 TABLET BY MOUTH EVERY DAY active Not Available Not Available No t Available chlorhexidi ne gluconate 0.12 % mouthwash SWISH AND SPIT 15 ML BY MOUTH THREE TIMES DAILY UNTIL ALL TAKEN 11/21 completed Not Available Not Available Not Available GaviLyte-G 236 gram-22.74 gram-6.74 gram-5.86 gram oral solution 12/21 completed Not Available Not Available Not Available Linzess 145 mcg capsule Take 1 capsule every day by oral route in the morning for 90 days. 01/12 completed Not Available Not Available Not Available Shingrix (PF) 50 mcg/0.5 mL intramuscul ar suspension, kit PHARMACIS T ADMINISTE RED IMMUNIZAT ION ADMINISTE RED AT TIME OF DISPENSIN G 01/12 completed Not Available Not Available Not Available Fluzone Quad (PF) 60 mcg (15 mcg x 4)/0.5 mL IM syringe 11/21 completed Not Available Not Available Not Available Fluzone High-Dose Quad (PF) 240 mcg/0.7 mL IM syringe PHARMACIS T ADMINISTE RED IMMUNIZAT ION ADMINISTE RED AT TIME OF DISPENSIN G active Not Available Not Available No t Available Vitals Date Recorded Body mass index (BMI) Body height Oxygen saturation Oxygen saturation in Arterial blood by Pulse oximetry Heart rate Body temperature Body weight Systolic And Diastolic Provider Name and Address Organization Details Last Updated DateTime 3 31.6 kg/m2 162.56 cm 98 % 98 % 70 /min 97.7 [degF] 95328 g 105/70 mm[Hg] Not Available [facility] 3 20:04:41 Date Recorded Body mass index (BMI) Body height Oxygen saturation Oxygen saturation in Arterial blood by Pulse oximetry Heart rate Body temperature Body weight Systolic And Diastolic Provider Name and Address Organization Details Last Updated DateTime 2 30.6 kg/m2 162.56 cm 98 % 98 % 72 /min 97.8 [degF] 96814.4 4 g 122/82 mm[Hg] Not Available [facility] 3 20:04:40 Date Recorded Body height Body mass index (BMI) Body weight Body temperature Respiratory rate Heart rate Systolic And Diastolic Provider Name and Address Organization Details Last Updated DateTime 3 162.56 cm 32.5 kg/m2 84412.3 9 g 97.8 [degF] 14 /min 81 /min 128/81 mm[Hg] Maria Guadalupe Tolliver RN [place] [facility] [employer] 3 12:16:11 Social History None recorded. Functional Status None recorded. Mental Status None recorded. Family History Nothing Reported. Medical History No medical history recorded. Gynecological HistoryNo gynecological history recorded. Obstetrics History GPAL:G 0 P 0 0 0 0 Past Encounters Encounter ID Performer Location Encounter Start Date Encounter Closed Date Diagnosis/Indication Diagnosis SNOMED-CT Code Diagnosis ICD10 Code Diagnosis IMO Codes Diagnosis Note [id number] [facility]_M IGRATION_ DEFAULT_1 _1 , 11/21/2021 00:00:00 11/21/2021 09:21:46 [id number] Carina Holley MD [facility] [place] [address] [place] [address] 06/17/2022 00:00:00 06/17/2022 13:03:14 [id number] Carina Holley MD [facility] [place] [address] [place] [address] 01/12/2023 11:36:56 01/12/2023 13:39:18 Hypothyroidism 98615712 E03.9 TSH and FT4 in ideal range- continue on LT4 88 mcg daily. She was reminded to take her LT4 on empty stomach with glass of water and wait one hour to eat or have her coffee in morning and up to 4 hours if ever taking any heartburn or reflux medication s to help optimize absorption . Discussed paleo like diet with restrictio n of GMOs to help with energy and to optimize absorption of vitamins and minerals and reduce inflammati on. Impaired f asting glycemia 831961668 R73.01 Discussed carb counting and how to read food labels. Recommende d patient to utilize the diabetesfo [employer]vid[employer] from the ADA website to help with food preparatio n as this presents ideal carb content per meal so this will make carb counting much easier for patient. Recommende d she incorporat e natural insulin assembly machine tool setter s such as pears, apples, cinnamon, sabrina and sweet potatoes to help mobilize her endogenous insulin. Recommende d up to 150 minutes of moderate level activity/e xercise weekly. Vitamin D deficiency 347 [address]11 E55.9 Recommende d vitamin D 3 4223-8301 IU daily for bone and immune health. Spent up to 25 minutes preparing to see the patient (eg, review of tests), obtaining and/or reviewing separately obtained history, performing a medically appropriat e examinatio n and evaluation , counseling and educating the patient, ordering medication s, tests, along with documentin g clinical informatio n in the electronic health record, independen tly interpreti ng results and communicat ing results to the patient. Patient can be followed by PCP - she/he is aware of my resignatio n and last day of March 06. If needed his/her PCP can refer patient to another endocrinol ogist in the area. All questions /concerns answered and refills necessary at visit today. Health Concerns Section Related Observation LastModified by Organization Detai ls LastModified Time None Recorded Concern Status LastModified by Organization Details LastModified Time None Recorded Advance Directives Directive None Recorded Payers Insurance Date Sequence Insurance Name Policy Number Policy Andres Covered Member ID Andres Member ID Guarantor Name 01/09/2023 1 [facility] (MEDICARE REPLACEMENT/A DVANTAGE - HMO) [id number] Mari Holley [id number] Mari Holley Notes Date Note Type Note Provider Name and Address Organization Details Recorded Time 01/12/2023 text/html ROS as noted in the HPI 67 yo female comes in for follow up in management of hypothyroidism and vit D def. last seen in May at that time we continued LT4 88 mcg daily. We added linzess for constipation and we continued vitamin D weekly for low levels. She has gained 11 pounds since last summer. She was getting leg cramps and aches from her vitamin D therapy- stopped the vitamin D 2 close to 5 months ago. She would like to start on something for her vitamin D as she cannot tolerate the weekly treatment. labs from 01/06/23:TSH of 1.85 uIU/mlFT4 of 1.1 ng/dLFT3 of 3.0 pg/mLVit D 33 ng/mLB12 434 pg/mLfolate normalTPO 162 IU/mliodine 69 ug/dLglucose 107 mg/dLCr normalLFT normal Carina Holley MD [address], [place], [address], [place] [facility] [employer] [facility] 01/12/2023 13:38:06 OBGyn Episode No OBEpisode recorded.
--- OUTSIDE RECORDS SUMMARY | 2025-04-06 12:43 | XMS_ITS | Clinical Summary ---
Author Organization [facility] [employer] Address [address] 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 This disclosure is being madepursuant to the Care Everywhere program and may not contain all information available regarding this patient. Last updated 18.[facility] [employer] Allergies Active Allergy Reactions Criticality Noted Date Comments Sulfa Antibiotics Rash Medium 02/04/2016 Medications * Be aware that medications may not be up to date on this document. Alwaysverify current medications with the patient. amLODIPine (Norvasc) 5 MG tablet Take 1 (one) tablet by mouth once daily Active levothyroxine (Synthroid) 88 MCG tablet TAKE 1 TABLET BY MOUTH ONCE DAILY WITH WATER IN THE MORNING 01/12/2023 Active rosuvastatin (Crestor) 10 MG tablet Take 1 (one) tablet by mouth once daily Active valACYclovir (Valtrex) 1 GM tablet Take 1 (one) tablet by mouth 3 times daily 06/16/2023 Active Multiple Vitamins-Minera ls (CENTRUM SILVER PO) Active vitamin D3 (Cholecaciferol ) 125 MCG (5000 UT) tablet Take 1 (one) tablet by mouth once daily Active cyanocobalamin (Vitamin B-12) 2500 MCG tablet Take 1 (one) tablet by mouth once daily Active Melatonin 5 MG Activ e docusate sodium (Colace) 100 MG capsule Take 1 (one) capsule by mouth once daily Active Oxygen Use as directed Active Active Problems Problem Noted Date Diagnosed Date Essential (primary) hypertension 06/05/2020 Gastroesophageal reflux disease without esophagi tis 06/05/2020 BIJAL (obstructive sleep apnea) 06/05/2020 Hypothyroidism 09/12/2019 Family History Medical History Relation Name Comments CAD (Coronary Artery Disease) Father Cancer - Colon Father Diabetes; unknown type Father CAD (Coronary Artery Disease) Mother Diabetes; unknown type Mother Cancer - Breast Sister Cancer - Colon Sister Relation Name Status Comments Father Mother Sister Social History Tobacco Use Types Packs/Day Years Used Date Smoking Tobacco: Former Cigarettes 0 Q uit: 2019 Smokeless Tobacco: Never Tobacco Cessation:Counseling Given: Not Answered Alcohol Use Standard Drinks/Week Comments Not Currently 0 (1 standard drink = 0.6 oz pur e alcohol) PHQ-2 Answer Date Recorded Patient Health Questionnaire-2 Score 0 02/02/2024 Comments No Sex and Gender Information Value Date Recorded Sex Assigned at Not on file 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 Gender Identity Not on file Sexual Orientation Not on file Last Filed Vital Signs Vital Sign Reading Time Taken Comments Blood Pressure 124/72 02/10/2024 10:51 AM CDT Pulse - - Temperature 36.8 C (98.2 F) 02/10/2024 10:51 AM CDT Respiratory Rate - - Oxygen Saturation - - Inhaled Oxygen Concentration - - Weight 80.2 kg (176 lb 12.8 oz) 024 10:51 AM CDT Height 157.5 cm (5' 2) 02/10/2024 10:5 1 AM CDT Body Mass Index 32.34 02/10/2024 10:51 AM CDT Plan of Treatment Health Maintenance Due Date Last Done Comments COLOGUARD (AGES 45-75) - COLON CA SCREENING 1954 CT COLONOGRAPHY - COLON CA SCREENING 1954 FIT - COLON CA SCREENING 1954 FLEX SIG - COLON CA SCREENING 1955 HEPATITIS C SCREENING 05/05/1972 DTAP/TDAP/TD VACCINES (1 - Tdap) 1973 PNEUMOCOCCAL VACCINE 50+ (1 of 1 - PCV) 2004 ZOSTER VACCINE (1 of 2) 2004 SCREENING FOR DIABETES 02/03/2024 DEPRESSION SCREENING 05/25/2024 02/03/2024 MEDICARE AWV CALENDAR YEAR 2024 COVID-19 VACCINE ( season) 2025 04/05/2023, 03/16/2022, 09/22/2021, Additional history exists INFLUENZA VACCINE (#1) 2025 , 03/02/2022, 03/25/2021, Additional history exists MAMMOGRAM 01/06/2026 01/07/2024, 11/22, 12/11/2023, Additional history exists Respiratory Syncytial Virus (RSV) Vaccine Pt: or over 60 yrs (1 - 1-dose 75+ series) 2029 COLON MONITORING 07/04/2031 07/04/2021 COLONOSCOPY - COLON CA SCREENING 07/04/2031 07/04/2021 Colorectal Cancer Screening 07/04/2031 BONE DENSITY TESTING Completed 08/08/2021, 12/08/19 18 HEPATITIS B VACCINE Aged Out No longe r eligible based on patient's age to complete this topic HIB VACCINE Aged Out No longer eligi ble based on patient's age to complete this topic HPV VACCINE Aged Out No longer eligi ble based on patient's age to complete this topic MENINGOCOCCAL (Group B) VACCINE SHARED DECISION-MAKING Aged Out No longer eligible based on patient's age to complete this topic MENINGOCOCCAL GROUPS A/C/Y/W VACCINE Aged Out No longer eligible based on patient's age to complete this topic Insurance [id number] MANAGED MEDICARE ADV [facility] MANAGED MEDICARE ADV Care Teams Seafood Farmer Relationship Specialty Start Date End Date Karl Riley MD [address] [place] [address] PCP - General Family Medicine 02/03/24
== END 2025-04-06 11:40 | disposition home or self-care (01) ==
PROVIDERS: PCP Emergency Medicine; Visit Provider Emergency Medicine
DX: M79.605 Pain in left leg (principal)
CPT/HCPCS: 93971